=== PATIENT | male | born 1950 | race Caucasian/White ===

== ENCOUNTER 2018-08-19 17:39 | Emergency (ER) | payer MEDICARE, OTHER ==
[~2018-08-19] VITALS: Ht 177.8 cm; Wt 71.2 kg
[~2018-08-19 17:39] MED LIST: AMIT50 PO; AMLO5 PO; ASPI325 PO; GEMF600 PO; GLIP10 PO; HYDACE5 PO; HYDCHL12.5 PO; INSULIN; LEVFLO500 PO; LORA2 PO; REGULAR INSULIN SQ; SIMV40 PO; [UNRECOGNIZED DRUG - OTHER] SQ
[2018-08-19 18:10] LABS: BASOPHILS ABSOLUTE AUTO 0.01 K/mm3 (0.00-0.23); BASOPHILS PERCENT AUTO 0 % (0-2); EOSINOPHILS ABSOLUTE AUTO 0.03 K/mm3 (0.00-0.68); EOSINOPHILS PERCENT AUTO 0 % (0-6); Hematocrit 39.5 % (37.0-53.0); Hemoglobin 13.2 g/dL (13.5-17.5); IMMATURE GRAN ABSOLUTE AUTO 0.03 K/mm3 (0.00-0.10); IMMATURE GRAN PERCENT AUTO 0 % (0-1); LYMPHOCYTES ABSOLUTE AUTO 1.36 K/mm3 (0.84-5.20); LYMPHOCYTES PERCENT AUTO 15 % (21-46); MONOCYTES ABSOLUTE AUTO 0.69 K/mm3 (0.16-1.47); MONOCYTES PERCENT AUTO 8 % (4-13); Mean Corpuscular HGB 31.4 pg (26.0-34.0); Mean Corpuscular HGB Conc 33.4 g/dL (31.5-36.5); Mean Corpuscular Volume 94 fL (80-100); Mean Platelet Volume 9.9 fL (9.1-12.4); NEUTROPHILS ABSOLUTE AUTO 6.98 K/mm3 (1.96-9.15); NEUTROPHILS PERCENT AUTO 77 % (41-73); Platelet Count 175 K/mm3 (150-400); RDW Coefficient Variation 12.9 % (11.7-14.2); RDW Standard Deviation 44.7 fL (35.1-46.3)
[2018-08-19 18:30] LABS: Alanine Aminotransfer (ALT/SGP 18 U/L (12-78); Albumin, Blood 3.3 g/dL (3.4-5.0); Albumin/Globulin Ratio 0.8 (0.8-1.8); Alk Phos 160 U/L (50-136); Anion Gap 7 mmol/L (6-16); Aspartate Aminotrans (AST/SGOT 7 U/L (12-37); Bilirubin, Total 0.3 mg/dL (0.1-1.0); Blood Urea Nitrogen 18 mg/dL (8-24); Bun/Creatinine Ratio 23.8 (12.0-20.0); CO2, Blood 24 mmol/L (21-32); Calcium, Blood 8.4 mg/dL (8.5-10.1); Chloride, Blood 108 mmol/L (98-108); Creatinine, Blood 0.76 mg/dL (0.60-1.20); Globulin, Blood 3.9 g/dL (2.2-4.0); Glomerular Filtration Rate >60 (60-); Glucose, Blood 303 mg/dL (70-99); Potassium, Blood 3.7 mmol/L (3.5-5.5); Sodium, Blood 139 mmol/L (136-145); Total Protein, Blood 7.2 g/dL (6.4-8.2)
[2018-08-19] MEDS ORDERED: Motion Sickness25 M1 PO (18:53)
[2018-08-19] MEDS ORDERED: GABA300 PO (19:05)
[2018-08-19] MEDS ORDERED: METF500C PO (19:06)
[2018-08-19] MEDS ORDERED: ATOR10 PO (19:11)
[2018-08-19] MEDS ORDERED: LISI20 PO (19:11)
[2018-08-19] MEDS ORDERED: ATEN50 PO (19:11)
[2018-08-19] MEDS ORDERED: CLOP75 PO (19:11)
[2018-08-19] MEDS ORDERED: INSULANPEN (19:13)
== END 2018-08-19 19:40 | disposition home or self-care (01) ==
LOC: ER 17:39
PROVIDERS: Emergency Medicine
DX: I95.9 Hypotension, unspecified (principal); E11.9 Type 2 diabetes mellitus without complications; I10 Essential (primary) hypertension; F41.9 Anxiety disorder, unspecified; F17.200 Nicotine dependence, unspecified, uncomplicated; Z88.0 Allergy status to penicillin; Z79.899 Other long term (current) drug therapy; Z79.82 Long term (current) use of aspirin; Z79.4 Long term (current) use of insulin
CPT/HCPCS: 80053; 83690; 85025; 86850; 86900; 86901; 96361; 96374; 99284-25; C9113; J7030

== ENCOUNTER 2019-06-03 17:11 | Emergency (ER) | payer OTHER, MEDICARE ==
[~2019-06-03] VITALS: Ht 177.8 cm; Wt 72.6 kg
[~2019-06-03 17:11] MED LIST changes: +ATEN50 PO; +ATOR10 PO; +CLOP75 PO; +GABA300 PO; +INSULANPEN; +LISI20 PO; +METF500C PO; +Motion Sickness25 M1 PO
[2019-06-03 17:39] LABS: BASOPHILS ABSOLUTE AUTO 0.03 K/mm3 (0.00-0.23); BASOPHILS PERCENT AUTO 0 % (0-2); EOSINOPHILS ABSOLUTE AUTO 0.13 K/mm3 (0.00-0.68); EOSINOPHILS PERCENT AUTO 2 % (0-6); Hematocrit 35.1 % (37.0-53.0); Hemoglobin 11.6 g/dL (13.5-17.5); IMMATURE GRAN ABSOLUTE AUTO 0.03 K/mm3 (0.00-0.10); IMMATURE GRAN PERCENT AUTO 0 % (0-1); LYMPHOCYTES PERCENT AUTO 16 % (21-46); MONOCYTES ABSOLUTE AUTO 0.47 K/mm3 (0.16-1.47); MONOCYTES PERCENT AUTO 6 % (4-13); Mean Corpuscular HGB 31.4 pg (26.0-34.0); Mean Corpuscular Volume 95 fL (80-100); Mean Platelet Volume 9.4 fL (9.1-12.4); NEUTROPHILS ABSOLUTE AUTO 5.48 K/mm3 (1.96-9.15); NEUTROPHILS PERCENT AUTO 75 % (41-73); Platelet Count 240 K/mm3 (150-400); RDW Coefficient Variation 12.6 % (11.7-14.2); RDW Standard Deviation 43.8 fL (35.1-46.3); White Blood Cell Count 7.34 K/mm3 (4.00-11.30)
[2019-06-03 18:05] LABS: Alanine Aminotransfer (ALT/SGP 21 U/L (12-78); Albumin, Blood 3.2 g/dL (3.4-5.0); Albumin/Globulin Ratio 0.8 (0.8-1.8); Alk Phos 128 U/L (50-136); Anion Gap 4 mmol/L (6-16); Aspartate Aminotrans (AST/SGOT 15 U/L (12-37); Bilirubin, Total 0.2 mg/dL (0.1-1.0); Blood Urea Nitrogen 11 mg/dL (8-24); Bun/Creatinine Ratio 14.8 (12.0-20.0); CO2, Blood 28 mmol/L (21-32); Calcium, Blood 8.5 mg/dL (8.5-10.1); Chloride, Blood 105 mmol/L (98-108); Creatinine, Blood 0.74 mg/dL (0.60-1.20); Globulin, Blood 4.1 g/dL (2.2-4.0); Glomerular Filtration Rate >60 (60-); Glucose, Blood 228 mg/dL (70-99); Sodium, Blood 137 mmol/L (136-145); Total Protein, Blood 7.3 g/dL (6.4-8.2); Troponin I 0.022 ng/mL (0.000-0.040)
== END 2019-06-03 19:06 | disposition home or self-care (01) ==
LOC: ER 17:11
PROVIDERS: Emergency Medicine
DX: R55 Syncope and collapse (principal); E11.9 Type 2 diabetes mellitus without complications; I10 Essential (primary) hypertension; F41.9 Anxiety disorder, unspecified; F17.200 Nicotine dependence, unspecified, uncomplicated; Z88.0 Allergy status to penicillin; Z79.899 Other long term (current) drug therapy; Z79.82 Long term (current) use of aspirin; Z79.4 Long term (current) use of insulin; Z79.02 Long term (current) use of antithrombotics/antiplatelets
CPT/HCPCS: 36415; 71045; 80053; 83880; 84484; 85025; 93005; 93010; 99284-25

== ENCOUNTER 2019-08-07 16:41 | Emergency (ER) | payer OTHER, MEDICARE ==
[~2019-08-07] VITALS: Ht 177.8 cm; Wt 72.6 kg
[2019-08-07] MEDS ORDERED: IBUP600 PO (20:09)
[2019-08-07] MEDS ORDERED: Norco 5-325 Ta1 EACH PO (20:09)
== END 2019-08-07 21:07 | disposition home or self-care (01) ==
LOC: ER 16:41
DX: S22.42XA Multiple fractures of ribs, left side, initial encounter for closed fracture (principal); S42.002A Fracture of unspecified part of left clavicle, initial encounter for closed fracture; E11.9 Type 2 diabetes mellitus without complications; I10 Essential (primary) hypertension; F41.9 Anxiety disorder, unspecified; E11.51 Type 2 diabetes mellitus with diabetic peripheral angiopathy without gangrene; Z88.0 Allergy status to penicillin; Z79.82 Long term (current) use of aspirin; Z79.899 Other long term (current) drug therapy; Z79.4 Long term (current) use of insulin; F17.200 Nicotine dependence, unspecified, uncomplicated; W10.9XXA Fall (on) (from) unspecified stairs and steps, initial encounter
CPT/HCPCS: 71101; 73030; 73060; 96374; 96375; 99283-25; A9270; J1885; J3010

== ENCOUNTER 2019-08-13 12:48 | Emergency (ER) | payer OTHER, MEDICARE ==
[~2019-08-13] VITALS: Ht 177.8 cm; Wt 71.7 kg
[~2019-08-13 12:48] MED LIST changes: +IBUP600 PO; +Norco 5-325 Ta1 EACH PO
[2019-08-13 13:15] LABS: BASOPHILS ABSOLUTE AUTO 0.03 K/mm3 (0.00-0.23); BASOPHILS PERCENT AUTO 0 % (0-2); EOSINOPHILS ABSOLUTE AUTO 0.11 K/mm3 (0.00-0.68); EOSINOPHILS PERCENT AUTO 1 % (0-6); Hematocrit 35.5 % (37.0-53.0); Hemoglobin 11.8 g/dL (13.5-17.5); IMMATURE GRAN ABSOLUTE AUTO 0.04 K/mm3 (0.00-0.10); IMMATURE GRAN PERCENT AUTO 0 % (0-1); LYMPHOCYTES ABSOLUTE AUTO 1.64 K/mm3 (0.84-5.20); LYMPHOCYTES PERCENT AUTO 18 % (21-46); MONOCYTES ABSOLUTE AUTO 0.85 K/mm3 (0.16-1.47); MONOCYTES PERCENT AUTO 9 % (4-13); Mean Corpuscular HGB 30.1 pg (26.0-34.0); Mean Corpuscular HGB Conc 33.2 g/dL (31.5-36.5); Mean Corpuscular Volume 91 fL (80-100); Mean Platelet Volume 9.8 fL (9.1-12.4); NEUTROPHILS ABSOLUTE AUTO 6.46 K/mm3 (1.96-9.15); NEUTROPHILS PERCENT AUTO 71 % (41-73); Platelet Count 234 K/mm3 (150-400); RDW Coefficient Variation 12.6 % (11.7-14.2); RDW Standard Deviation 41.6 fL (35.1-46.3); Red Blood Cell Count 3.92 M/mm3 (4.30-5.90); White Blood Cell Count 9.13 K/mm3 (4.00-11.30)
[2019-08-13 13:36] LABS: Alanine Aminotransfer (ALT/SGP 21 U/L (12-78); Albumin, Blood 3.1 g/dL (3.4-5.0); Albumin/Globulin Ratio 0.8 (0.8-1.8); Alk Phos 119 U/L (50-136); Anion Gap 7 mmol/L (6-16); Aspartate Aminotrans (AST/SGOT 34 U/L (12-37); Bilirubin, Total 0.6 mg/dL (0.1-1.0); Blood Urea Nitrogen 18 mg/dL (8-24); Bun/Creatinine Ratio 16.4 (12.0-20.0); CO2, Blood 27 mmol/L (21-32); Calcium, Blood 8.7 mg/dL (8.5-10.1); Chloride, Blood 102 mmol/L (98-108); Globulin, Blood 3.9 g/dL (2.2-4.0); Glomerular Filtration Rate >60 (60-); Glucose, Blood 221 mg/dL (70-99); Potassium, Blood 3.9 mmol/L (3.5-5.5); Sodium, Blood 136 mmol/L (136-145)
[2019-08-13] MEDS ORDERED: Norco 5-325 Ta1 EACH PO (15:27)
[2019-08-13] MEDS ORDERED: CYCL10 PO (15:27)
== END 2019-08-13 15:35 | disposition home or self-care (01) ==
LOC: ER 12:48
PROVIDERS: Physician Assistant
DX: R42 Dizziness and giddiness (principal); S22.42XA Multiple fractures of ribs, left side, initial encounter for closed fracture; S42.002A Fracture of unspecified part of left clavicle, initial encounter for closed fracture; I10 Essential (primary) hypertension; E11.51 Type 2 diabetes mellitus with diabetic peripheral angiopathy without gangrene; I73.9 Peripheral vascular disease, unspecified; F41.9 Anxiety disorder, unspecified; F17.200 Nicotine dependence, unspecified, uncomplicated; Z88.0 Allergy status to penicillin; Z79.899 Other long term (current) drug therapy; Z79.82 Long term (current) use of aspirin; Z79.4 Long term (current) use of insulin; Z79.01 Long term (current) use of anticoagulants; W19.XXXA Unspecified fall, initial encounter
CPT/HCPCS: 36415; 71046; 73060; 80053; 85025; 93005; 93010; 99284-25

== ENCOUNTER 2022-01-27 18:23 | Emergency (ER) | payer OTHER ==
[~2022-01-27] VITALS: Ht 177.8 cm; Wt 65.3 kg
[~2022-01-27 18:23] MED LIST changes: +AMITRIPTYLINE100 M2 PO; +CRUTCH2 XX; +CYCL10 PO; +HYDCHL25 PO; +HYDR1TAB94 PO; +MAGNESIUM OXID500 MG PO; +MELA3 PO; +METF500 PO; +Percocet 5-3251 EACH PO
== END 2022-01-27 20:40 | disposition home or self-care (01) ==
LOC: ER 18:23
DX: S40.012A Contusion of left shoulder, initial encounter (principal); W01.190A Fall on same level from slipping, tripping and stumbling with subsequent striking against furniture, initial encounter; I10 Essential (primary) hypertension; E11.51 Type 2 diabetes mellitus with diabetic peripheral angiopathy without gangrene; H54.60 Unqualified visual loss, one eye, unspecified; Z79.4 Long term (current) use of insulin; Z79.899 Other long term (current) drug therapy; Z88.0 Allergy status to penicillin
CPT/HCPCS: 73030

== ENCOUNTER → 2024-03-24 | Outpatient (CLI) | payer OTHER ==
[~2024-03-24] MED LIST changes: +ALBU2.5V5 INH; +B-1100 M1 PO; +BACLOFEN10 M4 PO; +CHLO25B PO; +Dilaudid 2 mg Ta2 MG; +FT SENNA-S 8.61 EACH PO; +HYDRA50 PO; +MIRALAX11914 PO; +MIRTAZAPINE30 MG PO; +MORP15ER PO; +SPIRIVA RESPIMAT4 G3 IH; +TRAZ100 PO; +VITAMIN D325 MC3 PO
[2024-03-24 13:54] LABS: Appearance, Urine Clear (Clear); Bilirubin, Urine Neg (Neg); Blood, Urine 1+ (Neg); Color, Urine Yellow (P-Yellow); Glucose Qualitative, Urine Neg (Neg); Ketones, Urine Neg (Neg); Leukocyte Esterase, Urine 2+ (Neg); Nitrite, Urine Neg (Neg); Protein, Urine 1+ (Neg); Specific Gravity, Urine 1.015 (1.003-1.022); Urobilinogen, Urine NORM (Normal)
[2024-03-24 14:26] LABS: Bacteria Few /hpf; Squamous Epithelial Cells Rare /hpf (Few)
== END ==
LOC: LAB SHORT 12:00 → LAB 12:00
PROVIDERS: Surgery
DX: C61 Malignant neoplasm of prostate (principal)
CPT/HCPCS: 81001

== ENCOUNTER 2024-12-10 00:12 | Emergency (ER) | payer OTHER ==
[~2024-12-10] VITALS: Ht 177.8 cm; Wt 65.8 kg
[2024-12-10] MEDS ORDERED: FentaNYL Citrate 50 MCG/ML 2 ML Injection IV PRN ×2 (01:05→02:15)
[2024-12-10 01:13] LABS: BASOPHILS PERCENT AUTO 0 % (0-2); EOSINOPHILS ABSOLUTE AUTO 0.01 K/mm3 (0.00-0.68); EOSINOPHILS PERCENT AUTO 0 % (0-6); Hematocrit 31.6 % (37.0-53.0); Hemoglobin 11.1 g/dL (13.5-17.5); IMMATURE GRAN ABSOLUTE AUTO 0.04 K/mm3 (0.00-0.10); IMMATURE GRAN PERCENT AUTO 1 % (0-1); LYMPHOCYTES ABSOLUTE AUTO 0.46 K/mm3 (0.84-5.20); LYMPHOCYTES PERCENT AUTO 7 % (21-46); MONOCYTES ABSOLUTE AUTO 0.54 K/mm3 (0.16-1.47); MONOCYTES PERCENT AUTO 8 % (4-13); Mean Corpuscular HGB 31.6 pg (26.0-34.0); Mean Corpuscular HGB Conc 35.1 g/dL (31.5-36.5); Mean Corpuscular Volume 90 fL (80-100); Mean Platelet Volume 10.1 fL (9.1-12.4); NEUTROPHILS ABSOLUTE AUTO 5.76 K/mm3 (1.96-9.15); NEUTROPHILS PERCENT AUTO 85 % (41-73); Platelet Count 133 K/mm3 (150-400); RDW Coefficient Variation 13.2 % (11.7-14.2); RDW Standard Deviation 43.2 fL (35.1-46.3); Red Blood Cell Count 3.51 M/mm3 (4.30-5.90); White Blood Cell Count 6.81 K/mm3 (4.00-11.30)
[2024-12-10 01:32] LABS: Albumin, Blood 3.4 g/dL (3.4-5.0); Albumin/Globulin Ratio 1.1 (0.8-1.8); Bilirubin, Total 0.6 mg/dL (0.1-1.0); Calcium, Blood 8.8 mg/dL (8.5-10.1); Creatinine, Blood 0.89 mg/dL (0.60-1.20); Potassium, Blood 3.5 mmol/L (3.5-5.5); Total Protein, Blood 6.4 g/dL (6.4-8.2)
[2024-12-10] MEDS ORDERED: NS 1,000 ML IV SCH (02:15)
[2024-12-10] MEDS ORDERED: Morphine Sulfate 4 MG/1 ML Injection IV ONE ×2 (03:30→05:10)
[2024-12-10] MEDS ORDERED: Ondansetron HCl 2 MG / ML 2ML Vial IV ONE (03:35)
[2024-12-10 05:15] VITALS: BP 174/93
== END 2024-12-10 05:40 | disposition short-term general hospital (02) ==
LOC: ER 00:12
PROVIDERS: Emergency Medicine
DX: S72.142A Displaced intertrochanteric fracture of left femur, initial encounter for closed fracture (principal); I10 Essential (primary) hypertension; E11.65 Type 2 diabetes mellitus with hyperglycemia; E11.51 Type 2 diabetes mellitus with diabetic peripheral angiopathy without gangrene; E86.0 Dehydration; Z59.89 Other problems related to housing and economic circumstances; Z88.0 Allergy status to penicillin; Z79.899 Other long term (current) drug therapy; Z79.82 Long term (current) use of aspirin; Z79.4 Long term (current) use of insulin; W18.30XA Fall on same level, unspecified, initial encounter; Y92.000 Kitchen of unspecified non-institutional (private) residence as the place of occurrence of the external cause
CPT/HCPCS: 73502; 73560-LT; 80053; 85025; 93005; 93010; 96374; 96375; 96376; 99285-25; J2270; J2405; J3010

== ENCOUNTER 2024-12-12 17:39 | Inpatient (IN) | payer OTHER ==
[~2024-12-12] VITALS: Ht 177.8 cm; Wt 68.6 kg
[2024-12-12 20:14] VITALS: BP 143/60
[2024-12-12] MEDS ORDERED: Lactated Ringer's 1,000 ML IV SCH (22:08)
[2024-12-12] MEDS ORDERED: OxyCODONE 5 mg/Acetamin 325 mg TABLET PO ONE (22:12)
[2024-12-12] MEDS ORDERED: Insulin Glargine-Yfgn 100 Unit/mL 3 ML SYR SC SCH (22:13)
[2024-12-12] MEDS ORDERED: Acetaminophen 325 MG TABLET PO PRN (22:15)
[2024-12-12] MEDS ORDERED: FentaNYL Citrate 50 MCG/ML 2 ML Injection IV PRN (22:20)
[2024-12-12 22:32] LABS: BASOPHILS ABSOLUTE AUTO 0.01 K/mm3 (0.00-0.23); BASOPHILS PERCENT AUTO 0 % (0-2); EOSINOPHILS ABSOLUTE AUTO 0.05 K/mm3 (0.00-0.68); EOSINOPHILS PERCENT AUTO 1 % (0-6); Hematocrit 28.5 % (37.0-53.0); Hemoglobin 10.2 g/dL (13.5-17.5); IMMATURE GRAN ABSOLUTE AUTO 0.02 K/mm3 (0.00-0.10); IMMATURE GRAN PERCENT AUTO 0 % (0-1); LYMPHOCYTES ABSOLUTE AUTO 1.12 K/mm3 (0.84-5.20); LYMPHOCYTES PERCENT AUTO 18 % (21-46); MONOCYTES ABSOLUTE AUTO 0.69 K/mm3 (0.16-1.47); MONOCYTES PERCENT AUTO 11 % (4-13); Mean Corpuscular HGB 32.1 pg (26.0-34.0); Mean Corpuscular HGB Conc 35.8 g/dL (31.5-36.5); Mean Corpuscular Volume 90 fL (80-100); Mean Platelet Volume 9.8 fL (9.1-12.4); NEUTROPHILS ABSOLUTE AUTO 4.31 K/mm3 (1.96-9.15); NEUTROPHILS PERCENT AUTO 70 % (41-73); Platelet Count 131 K/mm3 (150-400); RDW Coefficient Variation 12.7 % (11.7-14.2); Red Blood Cell Count 3.18 M/mm3 (4.30-5.90)
[2024-12-12] MEDS ORDERED: Nicotine 7 MG PATCH TOP SCH (22:34)
[2024-12-12 22:58] LABS: Albumin, Blood 2.6 g/dL (3.4-5.0); Albumin/Globulin Ratio 0.7 (0.8-1.8); Bilirubin, Total 0.7 mg/dL (0.1-1.0); Bun/Creatinine Ratio 24.4 (12.0-20.0); Calcium, Blood 8.3 mg/dL (8.5-10.1); Creatinine, Blood 0.78 mg/dL (0.60-1.20); Globulin, Blood 3.5 g/dL (2.2-4.0); Magnesium, Blood 1.8 mg/dL (1.6-2.4); Potassium, Blood 3.3 mmol/L (3.5-5.5); Total Protein, Blood 6.1 g/dL (6.4-8.2)
[2024-12-13] VITALS (18 sets, daily range): BP systolic 128–196; BP diastolic 49–116
[2024-12-13] MEDS ORDERED: Tranexamic Acid 100 ML IV SCH (06:55)
[2024-12-13] MEDS ORDERED: CeFAZolin Sodium 2,000 MG in NS 100 ML IV SCH (06:55)
[2024-12-13] MEDS ORDERED: Vancomycin HCL 1,000 MG in NS 250 ML IV SCH (07:00)
--- NOTE | 2024-12-13 07:18 | NUR ---
SHIFT SUMMARY PT ARRIVED DIRECT ADMIT FROM [facility] APPROX 2008. PT HERE FOR SURGERY FOR FRACTURED HIP. 2018, DOCTOR CALLED, NO ANSWER. 2023, DOCTOR CALLED AGAIN, INFO GIVEN TO DOCTOR TO INFORM HIM OF PT ARRIVAL AND NEED FOR ORDERS. DOCTOR STATED "IT MIGHT TAKE ME A WHILE TO GET TO IT, BUT I LL GET IT TAKEN CARE OF." 2144, DOCTOR ARTURO IN ROOM. WANTS TO OBSERVE PT PRESURGICALLY. PT TO BE NPO AT MIDNIGHT. PT HAS BEEN MEDICATED MULTIPLE TIMES FOR PAIN PER EMAR. PT STATES "FENTANYL JUST DOESN T DO ANYTHING FOR ME. 2MG OF DILAUDED LIKE THEY WERE GIVING ME BEFORE WAS THE FIRST THING TO HELP WITH THE PAIN." PT CONSISTENTLY AT "7/10" ON PAIN SCALE. WILL PASS ON TO DAY SHIFT.
[2024-12-13] MEDS ORDERED: Insulin Human Lispro 100 Units/ML 3ML Syringe SC SCH (07:30)
--- NOTE | 2024-12-13 07:45 | NUR ---
ASSUMPTION OF CARE: THIS RN ASSUMED CARE OF PATIENT. ASLEEP BUT WOKE DURING SHIFT CHANGE REPORT. LYING IN BED c HOB SLIGHTLY ELEVATED. BREATHING EVEN AND UNLABORED ON ROOM AIR. GAN PATENT AND DRAINING TO GRAVITY; COLLECTION BAG HANGING ON SIDE OF BED, OFF OF FLOOR. BED IN LOWEST POSITION. CALL LIGHT WITHIN REACH. ACUTE NEEDS MET.
[2024-12-13] MEDS ORDERED: Albuterol 2.5 MG/3 ML VIAL INH PRN (10:30)
[2024-12-13] MEDS ORDERED: Tiotropium Bromide 2.5 MCG/ACT MIST INHAL (10 ACT/4 GM) INH SCH (10:35)
[2024-12-13] MEDS ORDERED: HYDROmorphone HCl 2 MG Tab PO PRN (10:35)
[2024-12-13] MEDS ORDERED: Baclofen 10 MG Tab PO PRN (10:35)
--- NOTE | 2024-12-13 11:07 | NUR ---
PT NOT RECEIVING ADEQUATE PAIN CONTROL c 25mcg IV FENTANYL. RECEIVED ORDER FOR PO DILAUDID 2-4MG AND PO BACLOFEN 10MG. MEDS GIVEN. CALL FROM KATHERINE HUTCHINSON RN; PT TO PRE-OP ~ 1-1.5 HOURS.
--- NOTE | 2024-12-13 12:32 | NUR ---
DAY SURGERY RN x2 TO BEDSIDE FOR TRANSPORT TO DAY SURGERY. GLASSES AND DENTURES @ BEDSIDE c PATIENT LABEL. WILL TRANSPORT TO SURGICAL FLOOR ONCE ROOM IS ASSIGNED.
[2024-12-13] MEDS ORDERED: NS 0 ML IV ONE (12:38)
[2024-12-13] MEDS ORDERED: Lactated Ringer's 1,000 ML IV ONE (12:40)
--- NOTE | 2024-12-13 12:45 | NUR ---
PT HAS AN 18G IV IN R WRIST THAT SHOWS NO SIGNS OF INFILTRATION, FLOWS WELL TO GRAVITY
[2024-12-13] MEDS ORDERED: CeFAZolin Sodium 2,000 MG VIAL ONE (12:48)
[2024-12-13] MEDS ORDERED: HYDROmorphone HCl/Pf 1MG SYR IV PRN (13:00)
[2024-12-13] MEDS ORDERED: Metoclopramide HCl 5MG / ML 2ML Vial IV PRN (13:00)
[2024-12-13] MEDS ORDERED: FentaNYL Citrate 50 MCG/ML 2 ML Injection IV PRN ×2 (13:00)
[2024-12-13] MEDS ORDERED: Labetalol HCL 5 MG/ML 4ML Injection (Single Dose) IV PRN (13:00)
[2024-12-13] MEDS ORDERED: Ondansetron HCl 2 MG / ML 2ML Vial IV PRN (13:00)
[2024-12-13] MEDS ORDERED: propofoL 20 ML IV ONE (13:32)
[2024-12-13] MEDS ORDERED: Lidocaine HCl 2% 20 ML MDV ONE (13:33)
[2024-12-13] MEDS ORDERED: Ondansetron HCl 2 MG / ML 2ML Vial ONE (13:33)
[2024-12-13] MEDS ORDERED: Metoclopramide HCl 5MG / ML 2ML Vial ONE (13:33)
[2024-12-13] MEDS ORDERED: HYDROmorphone HCl/Pf 1MG SYR ONE ×3 (13:33→15:30)
[2024-12-13] MEDS ORDERED: Rocuronium Bromide 10 MG/ML 5ML Injection IV ONE (13:33)
[2024-12-13] MEDS ORDERED: HydrALAZINE HCl 50 MG Tab PO SCH (14:00)
[2024-12-13] MEDS ORDERED: Midazolam HCl 1MG / ML 2ML Vial ONE (14:02)
--- NOTE | 2024-12-13 14:11 | NUR ---
12/13/24 1411 Gildardo Alejandro PT HAS BRUISING AROUND PUBIS AND SCROTUM. DR. PHILLIPS WAS NOTIFIED AND HE IS AWARE.
[2024-12-13] MEDS ORDERED: FentaNYL Citrate 50 MCG/ML 5 ML Injection ONE (14:24)
--- NOTE | 2024-12-13 14:55 | NUR ---
REPORT TO LETI TITUS RN, ON SURGICAL FLOOR. PATIENT GOING TO 223.
[2024-12-13] MEDS ORDERED: Sugammadex Sodium 200 MG/2ML SDV (100 MG/ML) ONE (14:56)
[2024-12-13] MEDS ORDERED: Labetalol HCL 5 MG/ML 4ML Injection (Single Dose) ONE (15:54)
--- NOTE | 2024-12-13 16:55 | NUR ---
POST-OP TOA 1620, PATIENT IS BP 170/102, HR 110S-120S. MEDS GIVEN IN PACU, CONTINUING TO MONITOR VITALS, PRN HYDRALAZINE AVAILABLE. PATIENT STATES HE DOES NOT WANT HYDRALAZINE. RECHECK BP 135/77 PATIENT APPEARS SOME WHAT ANXIOUS. PEDAL PULSES +1 ON LEFT CAP REFIL <3 SEC. +2 PEDAL PULSES ON RIGHT. CAP REFIL <3. PALE IN APPEARANCE. BULKY DRESSING TO LEFT HIP C/D/I. DENIES PAIN. ABLE TO SIP ON WATER AT THIS TIME. SCDS AND TEDS ON. ICE TO L HIP. DENIES N/T, N/V. ORIENTED TO ROOM AND CALL LIGHT IN REACH.
[2024-12-13] MEDS ORDERED: OLANZapine 5 MG Tab PO ONE (19:55)
[2024-12-13] MEDS ORDERED: Atenolol 50 MG Tab PO SCH (19:56)
[2024-12-13] MEDS ORDERED: Atorvastatin 10 MG Tab PO SCH (20:05)
[2024-12-13] MEDS ORDERED: OLANZapine 5 MG Tab PO PRN (20:15)
[2024-12-13] MEDS ORDERED: Docusate Sodium/Senna 1 Tab PO SCH (21:00)
[2024-12-13] MEDS ORDERED: Mirtazapine 30 MG SoluTab PO SCH (21:00)
[2024-12-13] MEDS ORDERED: Gabapentin 300 MG Cap PO SCH (21:00)
[2024-12-13] MEDS ORDERED: AmLODIPine Besylate 5 MG Tab PO SCH (21:00)
[2024-12-13] MEDS ORDERED: TraZODone HCl 100 MG Tab PO SCH (21:00)
[2024-12-13] MEDS ORDERED: Acetaminophen 325 MG TABLET PO PRN (21:50)
[2024-12-13] MEDS ORDERED: Naloxone HCl 0.4MG / ML 1ML Vial IV PRN (21:50)
[2024-12-13] MEDS ORDERED: Bisacodyl 10 MG Supp PR PRN (21:55)
[2024-12-13] MEDS ORDERED: Ondansetron 4 MG TAB PO PRN (21:55)
[2024-12-14 03:26] VITALS: BP 171/70
[2024-12-14 05:12] LABS: BASOPHILS ABSOLUTE AUTO 0.01 K/mm3 (0.00-0.23); BASOPHILS PERCENT AUTO 0 % (0-2); EOSINOPHILS ABSOLUTE AUTO 0.01 K/mm3 (0.00-0.68); EOSINOPHILS PERCENT AUTO 0 % (0-6); Hematocrit 24.3 % (37.0-53.0); Hemoglobin 8.7 g/dL (13.5-17.5); IMMATURE GRAN ABSOLUTE AUTO 0.01 K/mm3 (0.00-0.10); IMMATURE GRAN PERCENT AUTO 0 % (0-1); LYMPHOCYTES ABSOLUTE AUTO 0.67 K/mm3 (0.84-5.20); LYMPHOCYTES PERCENT AUTO 13 % (21-46); MONOCYTES ABSOLUTE AUTO 0.63 K/mm3 (0.16-1.47); MONOCYTES PERCENT AUTO 12 % (4-13); Mean Corpuscular HGB 32.1 pg (26.0-34.0); Mean Corpuscular HGB Conc 35.8 g/dL (31.5-36.5); Mean Corpuscular Volume 90 fL (80-100); Mean Platelet Volume 9.8 fL (9.1-12.4); NEUTROPHILS ABSOLUTE AUTO 3.83 K/mm3 (1.96-9.15); NEUTROPHILS PERCENT AUTO 74 % (41-73); Platelet Count 142 K/mm3 (150-400); RDW Coefficient Variation 12.7 % (11.7-14.2); RDW Standard Deviation 41.3 fL (35.1-46.3); Red Blood Cell Count 2.71 M/mm3 (4.30-5.90); White Blood Cell Count 5.16 K/mm3 (4.00-11.30)
[2024-12-14 06:59] VITALS: BP 184/85
[2024-12-14] MEDS ORDERED: Magnesium Oxide 400 MG Tab PO SCH (09:00)
[2024-12-14] MEDS ORDERED: Lisinopril 20 MG Tab PO SCH (09:00)
[2024-12-14] MEDS ORDERED: Docusate Sodium 100 MG Cap PO SCH (09:00)
[2024-12-14] MEDS ORDERED: Thiamine HCl 100 MG Tab PO SCH (09:00)
[2024-12-14] MEDS ORDERED: HydroCHLOROthiazide 25 mg Tab PO SCH (09:00)
[2024-12-14] MEDS ORDERED: Aspirin 325 MG Tab PO SCH (09:00)
[2024-12-14] MEDS ORDERED: Polyethylene Glycol 3350 17 gm PO SCH (09:00)
[2024-12-14] MEDS ORDERED: Atenolol 50 MG Tab PO SCH (09:00)
[2024-12-14] MEDS ORDERED: Atorvastatin 10 MG Tab PO SCH (09:00)
[2024-12-14] MEDS ORDERED: Cholecalciferol 1000 Unit Tablet (=25MCG) PO SCH (09:00)
[2024-12-14] MEDS ORDERED: Clopidogrel Bisulfate 75 MG Tab PO SCH (09:00)
[2024-12-14 11:38] VITALS: BP 164/71
[2024-12-14 14:17] VITALS: BP 121/78
[2024-12-14] MEDS ORDERED: Enoxaparin 40 MG/0.4 ML SYR SC SCH (17:00)
--- NOTE | 2024-12-14 17:56 | NUR ---
END OF SHIFT PT SITTING UP IN CHAIR. AGREEABLE TO CARE TODAY/COMPLIANT. DENIES COMPLAINTS. WILL CONTINUE TO MONITOR.
[2024-12-14 19:51] VITALS: BP 176/82
--- NOTE | 2024-12-15 04:10 | NUR ---
SHIFT SUMMARY MISBAH WAS ALERT AND FULLY ORIENTED ON ASSESSMENT. AT TIME OF ASSESSMENT GAN FLOWING WELL TO GRAVITY, DRESSINGS TO L HIP C/D/I, PAIN MODERATELY WELL CONTROLLED. PT ABLE TO WIGGLE TOES, SENSATION AND CIRCULATION INTACT TO BOTH FEET. PT BECAME CONFUSED DURING THE NIGHT AND SET OFF BED ALARM. PT WAS NEAR TO FALLING WHEN STAFF ARRIVED, AND HAD DISCONNECTED HIS GAN CATHETER AT THE HUB. GAN REMOVED AT PT REQUEST, ORDERS WERE TO REMOVE IT TODAY ON POD 2. NO EVENTS SINCE, CONTINUING TO MONITOR.
[2024-12-15 04:32] VITALS: BP 139/65
[2024-12-15 06:45] LABS: Hematocrit 25.3 % (37.0-53.0); Hemoglobin 8.6 g/dL (13.5-17.5)
[2024-12-15 07:05] LABS: Bun/Creatinine Ratio 19.1 (12.0-20.0); Calcium, Blood 8.9 mg/dL (8.5-10.1); Creatinine, Blood 0.79 mg/dL (0.60-1.20); Phosphorus, Blood 3.1 mg/dL (2.5-4.9); Potassium, Blood 3.5 mmol/L (3.5-5.5)
[2024-12-15 07:44] VITALS: BP 129/67
--- NOTE | 2024-12-15 08:36 | NUR ---
NEW ONSET BRUISING TO SCROTUM. PT EXPRESSES CONCERN ABOUT THIS D/T HX OF PROSTATE CA. DENIES PAIN OR ITCHING. APPROXIMATELY AT THE LEVEL/SLIGHTLY BELOW HIP INCISION.
[2024-12-15] MEDS ORDERED: NARCAN4 M1 (11:55)
[2024-12-15] MEDS ORDERED: NICODERM CQ1 EA24 TOP (11:56)
--- NOTE | 2024-12-15 13:06 | NUR ---
DC INSTRUCT REVIEWED. STATED UNDERSTANDING. DISCHARGED INTO CT TRANSPORTATION CARE.
== END 2024-12-15 13:11 | disposition home health service (06) | DRG 482 ==
LOC: MEDS 17:39 → SURS 12-13 12:21 → MEDS 12-13 12:22 → SURS 12-13 15:23
PROVIDERS: Family Medicine; Hospitalist; Orthopaedic Surgery; ADMIT Internal Medicine
PROC: 0QS706Z Reposition Left Upper Femur with Intramedullary Internal Fixation Device, Open Approach (ICD-10-PCS; principal; 2024-12-13 14:00)
DX: S72.142A Displaced intertrochanteric fracture of left femur, initial encounter for closed fracture (principal); W18.30XA Fall on same level, unspecified, initial encounter; E11.51 Type 2 diabetes mellitus with diabetic peripheral angiopathy without gangrene; F41.9 Anxiety disorder, unspecified; G89.29 Other chronic pain; J44.9 Chronic obstructive pulmonary disease, unspecified; I11.0 Hypertensive heart disease with heart failure; I50.9 Heart failure, unspecified; F17.210 Nicotine dependence, cigarettes, uncomplicated; Z88.0 Allergy status to penicillin; Z79.4 Long term (current) use of insulin; Z79.82 Long term (current) use of aspirin; Z79.899 Other long term (current) drug therapy; Z79.02 Long term (current) use of antithrombotics/antiplatelets; Z85.46 Personal history of malignant neoplasm of prostate; F32.9 Major depressive disorder, single episode, unspecified; B19.20 Unspecified viral hepatitis C without hepatic coma; I25.2 Old myocardial infarction; Z95.5 Presence of coronary angioplasty implant and graft
CPT/HCPCS: 36415; 80048; 80053; 82947; 83735; 84100; 85014; 85018; 85025; 85610; 94640; 94664; 94760; 96374; 96376; 97110; 97162; 97165; 97530; A9270; C1713; C1769; G0378; J0690; J1171; J1650; J1815; J2250; J2405; J2704; J2765; J3010; J3370; J7030; J7050; J7120